=== PATIENT | male | born 1945 | race Caucasian/White ===

== ENCOUNTER → 2016-06-04 | Outpatient (CLI) | payer BC ==
[~2016-06-04] MED LIST: SILD50TA PO; TAMS0.4C59 PO
[2016-06-04 13:59] LABS: ALT/SGPT 31 U/L (12-78); AST/SGOT 18 U/L (15-37); BLOOD UREA NITROGEN 18 mg/dl (7-18); BUN/CREATININE RATIO 18.6 (10-20); CALCIUM 8.7 mg/dl (8.5-10.1); CARBON DIOXIDE 27 mmol/L (21-32); CHLORIDE 110 mmol/L (98-107); CREATININE 0.97 mg/dl (0.60-1.40); GLUCOSE 103 mg/dl (70-99); POTASSIUM 4.5 mmol/L (3.5-5.1); SODIUM 144 mmol/L (136-145)
[2016-06-04 14:01] LABS: ALB/GLOB RATIO 1.2 (0.9-2); ALKALINE PHOSPHATASE 56 U/L (45-117); CHOLESTEROL 204 mg/dl (0-200); CHOLESTEROL/HDL RATIO 3.8; HDL CHOLESTEROL 54 mg/dl; TRIGLYCERIDES 112 mg/dl (0-150); VERY LOW DENSITY LIPOPROT CALC 22 mg/dl
[2016-06-04 14:11] LABS: ESTIMATED AVERAGE GLUCOSE 120 mg/dl; HA1C FLAG Normal (Normal)
== END | disposition home or self-care (01) ==
LOC: C.LABSPEC 12:15
PROVIDERS: ATTEND Internal Medicine
DX: Z00.00 Encounter for general adult medical examination without abnormal findings (principal); R73.9 Hyperglycemia, unspecified; E78.5 Hyperlipidemia, unspecified

== ENCOUNTER → 2016-07-13 | Outpatient (CLI) | payer BC ==
[2016-07-13 17:46] LABS: LYME DISEASE AB IGG NEG (NEG); LYME DISEASE AB IGM NEG (NEG)
== END | disposition home or self-care (01) ==
LOC: C.LABSPEC 13:30
PROVIDERS: ATTEND Internal Medicine
DX: T14.8 Other injury of unspecified body region (principal); W57.XXXA Bitten or stung by nonvenomous insect and other nonvenomous arthropods, initial encounter

== ENCOUNTER → 2016-11-24 | Outpatient (CLI) | payer BC ==
[2016-11-24 11:19] LABS: BLOOD UREA NITROGEN 27 mg/dl (7-18); BUN/CREATININE RATIO 29.3 (10-20); CREATININE 0.91 mg/dl (0.60-1.40)
== END | disposition home or self-care (01) ==
LOC: C.LAB 09:21
PROVIDERS: ATTEND Urology
DX: R39.15 Urgency of urination (principal)

== ENCOUNTER → 2017-04-26 | Outpatient (CLI) | payer BC ==
[2017-04-26 18:44] LABS: INFLUENZA B ANTIGEN Neg for Influ B (NEG)
== END | disposition home or self-care (01) ==
LOC: C.LAB 16:49
PROVIDERS: ATTEND Internal Medicine
DX: B33.8 Other specified viral diseases (principal)

== ENCOUNTER → 2017-10-11 | Outpatient (CLI) | payer BC ==
[2017-10-11 09:35] LABS: BASO % 0.7 %; BASO ABS # 0.03 K/uL (0-0.2); EOS % 8.6 %; EOS ABS # 0.38 K/uL (0-0.5); HEMATOCRIT 44.4 % (42-52); IG# 0.01 K/uL (0.00-0.02); LYMPH % 31.7 %; MEAN CELL VOLUME 94.9 fL (80-100); MEAN CORPUSCULAR HEMOGLOBIN 32.1 pg (25-34); MEAN CORPUSCULAR HGB CONC 33.8 g/dl (32-36); MEAN PLATELET VOLUME 10.7 fL (7.4-10.4); MONO % 11.1 %; MONO ABS # 0.49 K/uL (0.11-0.59); NEUT % 47.7 %; NEUT ABS # 2.11 K/uL (1.4-6.5); PLATELET COUNT 227 K/uL (130-400); RED CELL DISTRIBUTION WIDTH CV 13.5 % (11.5-14.5); RED CELL DISTRIBUTION WIDTH SD 46.7 fL (36.4-46.3); WHITE BLOOD COUNT 4.42 K/uL (4.8-10.8)
[2017-10-11 09:51] LABS: HEMOGLOBIN A1C 5.9 % (4.5-5.6)
[2017-10-11 10:10] LABS: ALBUMIN 3.6 gm/dl (3.4-5.0); ALKALINE PHOSPHATASE 58 U/L (45-117); ALT/SGPT 27 U/L (12-78); AST/SGOT 17 U/L (15-37); BLOOD UREA NITROGEN 19 mg/dl (7-18); CALCIUM 8.4 mg/dl (8.5-10.1); CARBON DIOXIDE 26 mmol/L (21-32); CHOLESTEROL 199 mg/dl (0-200); CREATININE 0.86 mg/dl (0.60-1.40); GLUCOSE 99 mg/dl (70-99); LDL CHOLESTEROL (DIRECT) 134 mg/dl; POTASSIUM 4.5 mmol/L (3.5-5.1); SODIUM 138 mmol/L (136-145); TOTAL PROTEIN 6.9 gm/dl (6.4-8.2)
== END | disposition home or self-care (01) ==
LOC: C.LAB 08:27
PROVIDERS: ATTEND Internal Medicine
DX: R73.9 Hyperglycemia, unspecified (principal); E78.5 Hyperlipidemia, unspecified; M79.2 Neuralgia and neuritis, unspecified

== ENCOUNTER 2020-10-06 05:16 | Observation (INO) ==
--- NOTE | 2020-09-17 12:52 | PAT Medication Instructions ---
Medication Instructions Date of Service September 17, 2020 Home Medications Medication Instructions Recorded sildenafil (pulm.hypertension) 20 20 - 100 mg PO ONCE PRN #90 tab 02/28/ mg tablet Wheeled Walker #1 ea 09/15/20 clobetasol 0.025 % topical cream 1 appln TOP BID PRN ketoconazole 2 % topical cream 1 appln TOP BID PRN triamcinolone acetonide 0.025 % topical cream 1 appln TOP BID PRN sildenafil 20 mg tablet 20 - 100 mg PO ONCE PRN finasteride 5 mg PO QAM ibuprofen 200 mg PO Q6H PRN vit C,X-Yz-tgvrn-lutein-zeaxan [PreserVision AREDS-2] 1 tab PO QAM vitamin A-vitamin C-vit E-min [Eye Health] 1 tab PO QAM ASK your surgeon for instructions ibuprofen 200 mg PO Q6H PRN STOP taking 2 weeks before surgery (or as soon as possible if surgery is within 2 weeks) vit C,B-Ei-lrrrs-lutein-zeaxan [PreserVision AREDS-2] 1 tab PO QAM vitamin A-vitamin C-vit E-min [Eye Health] 1 tab PO QAM STOP taking 24 hours before surgery clobetasol 0.025 % topical cream 1 appln TOP BID PRN ketoconazole 2 % topical cream 1 appln TOP BID PRN triamcinolone acetonide 0.025 % topical cream 1 appln TOP BID PRN DO NOT take the morning of surgery sildenafil 20 mg tablet 20 - 100 mg PO ONCE PRN Take morning of surgery finasteride 5 mg PO QAM Other Notes If you have any questions please call us at [phone] or [phone] or [phone] or [phone]
--- NOTE | 2020-09-19 09:21 | Anesthesiology Consultation ---
Date of Service September 19, 2020 Assessment & Plan (1) Encounter for pre-operative examination: COVID screening: Per assessment on 09/19: Travel screen negative, no known COVID- 19 positive contacts or current COVID-19 related symptoms. Patient vaccinated. Surgeon arranging preop COVID testing. Awaiting results. Chart Review Chart Review: Acceptable Risk for Surgery and Patient seen in Pre Admission Testing Teaching & Discussion Pre-Anesthesia Teaching/Discussion Notes: Instructed NPO after midnight before surgery,except medications with 15 cc of water. Medication instructions pr ovided according to the PAT guidelines. History Surgery Operation Date: 10/06/20 09:20 Proposed Procedures p Right Total Knee Arthroplasty - Gianni Sánchez MD Height/Weight Height: 6 ft Weight: 97.9 kg Allergies Allergy/AdvReac Type Severity Reaction Status Date / Time No Known Allergies Allergy Unknown Verified 03/31/20 09:28 Medications Home Medications Medication Instructions Recorded Confirmed Last Taken clobetasol 0.025 % topical cream 1 appln TOP BID PRN 02/05/19 09/17/20 Unknown ketoconazole 2 % topical cream 1 appln TOP BID PRN 02/05/19 09/17/20 Unknown triamcinolone acetonide 0.025 % 1 appln TOP BID PRN 02/05/19 09/17/20 Unknown topical cream Wheeled Walker #1 ea 09/15/20 09/17/20 Unknown finasteride 5 mg PO QAM 09/17/20 09/17/20 Unknown ibuprofen 200 mg PO Q6H PRN 09/17/20 09/17/20 Unknown sildenafil 20 - 100 mg PO ONCE PRN 09/17/20 09/17/20 Unknown vit C,C-Dy-wrfhe-lutein-zeaxan 1 tab PO QAM 09/17/20 09/17/20 Unknown [PreserVision AREDS-2] vitamin A-vitamin C-vit E-min [Eye 1 tab PO QAM 09/17/20 09/17/20 Unknown Health] Past Medical History Medical History Enlarged prostate with lower urinary tract symptoms (LUTS) History of elevated prostate specific antigen (PSA) Slowing of urinary stream Urge incontinence of urine Exercise / Class Metabolic Activity II 4-5 Yardwork/Stairs/Walk up hill (one FS (no CP, no SOB)) Past Family History Family History Brother Diabetes Past Surgical History Surgical History History of arthroscopy Right knee History of carpal tunnel release R/L History of cataract surgery R/L History of colonoscopy History of prostate surgery x2 History of tooth extraction Hx of inguinal hernia repair Hx of non-cataract eye surgery R/L (for glaucoma) Past Anesthesia History No Hx of Anesthesia Complications and No Family Hx of Anesthesia Complications History of PONV No Hx of Motion Sickness and History of PONV Social History Smoking Status: Never smoker Do You Dip or Chew Tobacco: No Hx Alcohol Use: Yes Alcohol type: beer, wine and hard liquor alcohol intake frequency: 0-2 drinks per day (2 drinks/day (type of drink differs)) Hx Substance Use: No substance use type: does not use Review of Systems Patient denies chest pain, shortness of breath, dyspnea on exertion, fever, chills, cough, wheezing, palpitations. Physical Exam Vital Signs VITALS BP 121/77 P 74 TEMP SP02 97%RA RESP 16 PHYSICAL Mildly reduced cervical extension range of motion. Full TMJ range of motion. TMD 3 finger breaths Mallampati Score 2 Dentition: intact, + veneers (upper front) Lungs: clear throughout to auscultation Cardiac: regular rate and rhythm, no murmurs noted Spine: normal Carotid arteries: negative bruit Extremities: no edema Lab Results Anesthesia Preop Results Results Anesthesia Widget: WBC 4.99 K/uL (4.8-10.8) 09/19/20 Hgb 15.3 g/dL (14.0-18.0) 09/19/20 Hct 44.6 % (42-52) 09/19/20 Plt 229 K/uL (130-400) 09/19/20 Na 143 mmol/L (136-145) 09/19/20 K 4.2 mmol/L (3.5-5.1) 09/19/20 Cl 113 mmol/L (98-107) H 09/19/20 CO2 27 mmol/L (21-32) 09/19/20 BUN 19 mg/dl (7-18) H 09/19/20 Creat 0.87 mg/dl (0.6-1.4) 09/19/20 Glucose Level 93 mg/dl (70-99) 09/19/20 PT 11.2 Seconds (9.0-12.0) 09/19/20 PTT 25.8 Seconds (21.0-31.0) 09/19/20 INR 1.1 (0.9-1.1) 09/19/20 Blood Type O Positive 09/19/20 Antibody Screen NEGATIVE 09/19/20 Testing Electrocardiogram Date: 09/19/20 NSR at 76bpm. NS TWA. Chest X-Ray Date: 09/19/20 FINDINGS: PA and lateral chest radiographs are compared to study dated 05/14/2013. The heart is mildly enlarged noting atherosclerotic calcification of the thoracic aorta. The pulmonary vasculature is noncongested. There is bibasilar scarring/atelectasis. No airspace consolidation or pleural effusion is identified. There is no pneumothorax. The skeletal structures are osteopenic. The bony thorax appears intact. IMPRESSION: No active disease in the chest.
[2020-10-06] MEDS ORDERED: LR 60ML/HR IV SCH (06:00)
[2020-10-06] MEDS ORDERED: LR 500ML BOLUS, THEN 15ML/HR IV SCH (06:00)
[2020-10-06] MEDS ORDERED: BUPIVACAINE LIPOSOME 1.3% 266 MG/20 ML VIAL ONE (06:34)
[2020-10-06] MEDS ORDERED: SODIUM CHLORIDE 0.9% PF 50 ML VIAL ONE (06:34)
[2020-10-06] MEDS ORDERED: BUPIVACAINE 0.25% 30 ML VIAL ONE ×2 (06:35→06:37)
[2020-10-06] MEDS ORDERED: EPINEPHrine INJ 1 MG/ML AMP ONE ×2 (06:35→06:38)
[2020-10-06] MEDS ORDERED: PROPOFOL IV EMULSION 10 MG/ML 20 ML VIAL IV ONE ×2 (06:36→06:46)
[2020-10-06] MEDS ORDERED: fentaNYL citrate 100 MCG/2 ML VIAL ONE (06:36)
[2020-10-06] MEDS ORDERED: LIDOCAINE 2% 2 ML VIAL/AMP(20MG/ML) INFIL ONE ×2 (06:36→06:46)
[2020-10-06] MEDS ORDERED: MIDAZOLAM HCL 1 MG/ML 2ML VIAL ONE ×2 (06:36→07:31)
[2020-10-06] MEDS ORDERED: HYDROmorphone INJ 2 MG/ML SYR/VIAL IV PRN (06:45)
[2020-10-06] MEDS ORDERED: ePHEDrine sulfate 50 MG/ML AMP IV PRN (06:45)
[2020-10-06] MEDS ORDERED: ONDANSETRON INJ 2 MG/ML 2 ML VIAL IV PRN ×2 (06:45→10:07)
[2020-10-06] MEDS ORDERED: ATROPINE SULFATE 0.1 MG/ML 10ML SYR IV PRN (06:45)
[2020-10-06] MEDS ORDERED: fentaNYL citrate 100 MCG/2 ML VIAL IV PRN (06:45)
[2020-10-06] MEDS ORDERED: ceFAZolin 2,000 MG/15 ML IV PUSH IV ONE (06:52)
[2020-10-06] MEDS ORDERED: dexAMETHasone 4 MG TAB PO ONE (06:53)
[2020-10-06] MEDS ORDERED: TRANEXAMIC ACID / 0.7% NACL 1000MG/100ML BAG IV ONE (06:53)
[2020-10-06] MEDS ORDERED: ACETAMINOPHEN 500 MG TAB ONE (06:55)
--- NOTE | 2020-10-06 06:57 | History & Physical Bridge Note ---
Date of Service October 06, 2020 History & Physical Bridge Note I have examined the patient, reviewed the History & Physical and in the interval since the performance of the History & Physical I have noted the following changes of clinical significance: no changes noted
--- NOTE | 2020-10-06 08:55 | Post Operative Brief Note ---
PG Immediate Post Op with CF Date of Surgery October 06, 2020 Pre & Post Diagnosis Operation Date: 10/06/20 07:00 Pre-Op Diagnosis: Right Knee Degenerative Joint Disease Post-Op Diagnosis: Right Knee Degenerative Joint Disease I identified the patient and participated in the time-out.: Yes Procedure Operation Date: 10/06/20 07:00 Actual Procedures p Right Total Knee Arthroplasty, Cemented(Right) - Gianni Sánchez MD Surgeon Gianni Sánchez MD Sk[employer] SHEKHAR Burkett Estimated Blood Loss 50 Findings Consistent with Post-Op Diagnosis Fluids 1300 cc Specimens Specimen Description: Permanent Specimen A: Right knee bone and tissue Drains Catheter Anesthesia Type Spinal MAC Complications none Disposition Accompanied Patient To Recovery: No
--- NOTE | 2020-10-06 09:27 | XRay Report ---
XR knee RT 1 or 2V routine CLINICAL HISTORY: Postoperative evaluation. COMPARISON: Knee radiographs August 24, 2018. FINDINGS: Alignment of the total right knee arthroplasty is anatomic. No periprosthetic fracture. Th ere is no unexpected radiopaque foreign body. There are skin erlin. IMPRESSION: Expected findings following total right knee arthroplasty. ACT 112: Negative or not required by law. Electronically signed by: Noah Salomon M.D. 10/06/2020 9:26 AM
[2020-10-06] MEDS ORDERED: METOCLOPRAMIDE HCL INJ 5 MG/ML 2 ML VIAL IV PRN (10:07)
[2020-10-06] MEDS ORDERED: bisacodyL 10 MG SUPP PR PRN (10:07)
[2020-10-06] MEDS ORDERED: NALOXONE HCL 0.4 MG/1 ML VIAL/CARP IV PRN (10:07)
[2020-10-06] MEDS ORDERED: TRIAMCINOLONE ACET 0.025% CR 15 GM TUBE TOP PRN (10:07)
[2020-10-06] MEDS ORDERED: NON-FORMULARY MEDICATION (Vitamin A-Vitamin C-Vit E-Min Tablet) PO SCH (10:07)
[2020-10-06] MEDS ORDERED: MULTIVITAMIN TAB PO SCH (10:07)
[2020-10-06] MEDS ORDERED: ALUMINUM/MAGNESIUM SUSP 30 ML UDC PO PRN (10:07)
[2020-10-06] MEDS ORDERED: oxyCODONE HCL IR 5 MG TAB (IMMEDIATE RELEASE) PO PRN (10:07)
[2020-10-06] MEDS ORDERED: KETOCONAZOLE 2% CR 15 GM TUBE EXT PRN (10:07)
[2020-10-06] MEDS ORDERED: TAMSULOSIN HCL 0.4 MG CAP PO PRN (10:07)
[2020-10-06] MEDS ORDERED: MAGNESIUM HYDROXIDE SUSP 30 ML UDC PO PRN (10:07)
--- NOTE | 2020-10-06 10:38 | Anesthesiology Progress Note ---
Date of Service October 06, 2020 Anesthesia Post Procedure Vital Signs Vital Signs: Temp Pulse Pulse Pulse Resp BP BP 10/06/20 10:29 36.3 C L 61 16 145/80 H 10/06/20 10:00 36.7 C 59 L 16 134/71 10/06/20 09:50 59 L 12 133/72 10/06/20 09:40 37.0 C 58 L 12 133/71 10/06/20 09:30 55 L 14 115/66 10/06/20 09:20 58 L 12 124/64 10/06/20 09:10 60 13 109/64 10/06/20 09:00 36.5 C 61 17 102/59 L 10/06/20 05:56 36.8 C 70 18 136/91 Pulse Ox 10/06/20 10:29 96 10/06/20 10:00 95 10/06/20 09:50 94 10/06/20 09:40 97 10/06/20 09:30 97 10/06/20 09:20 100 10/06/20 09:10 97 10/06/20 09:00 98 10/06/20 05:56 93 Transfer of Care Handoff Completed per policy Notes Mental Status: alert / awake / arousable and participated in evaluation Patient Amnestic to Procedure: Yes Nausea / Vomiting: adequately controlled Pain: adequately controlled Airway Patency, RR, SpO2: stable & adequate BP & HR: stable & adequate Hydration State: stable & adequate Anesthetic Complications: no major complications apparent and Pt Satisfied with anesthetic care
[2020-10-06] MEDS: CEROVITE ADV FORMULA TAB PO SCH (12:03)
[2020-10-06] MEDS: ASPIRIN 81 MG ECTAB PO SCH ×2 (12:03→20:52)
[2020-10-06] MEDS: KETOROLAC TROMETHAMINE 15 MG/ML VIAL IV SCH ×3 (12:03→23:15)
[2020-10-06] MEDS: TAPENTADOL HCL ER 50 MG TABCR PO SCH ×2 (12:03→20:51)
[2020-10-06] MEDS: DOCUSATE SODIUM 100 MG CAP PO SCH ×2 (12:03→20:51)
[2020-10-06] MEDS: FINASTERIDE 5 MG TAB PO SCH (12:03)
[2020-10-06] MEDS: SODIUM CHLORIDE 0.9% 1000ML 1,000 ML IV SCH ×3 (13:32→20:55)
[2020-10-06] MEDS: ACETAMINOPHEN 500 MG TAB PO SCH ×2 (13:33→20:52)
[2020-10-06] MEDS ORDERED: TRANEXAMIC ACID / 0.7% NACL 1,000 MG/100 ML BAG IV SCH (15:00)
[2020-10-06] MEDS: ceFAZolin 2000MG 2,000 MG/15 ML SYR IV SCH ×2 (17:13→23:14)
[2020-10-06] MEDS: ASCORBIC ACID 500 MG TAB PO SCH (17:13)
--- NOTE | 2020-10-06 17:20 | Operative Report ---
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 Extensive grade 4 [id number] disease of the medial compartment. Fairly mild degenerative changes laterally and moderate check degenerative changes in the patellofemoral compartment. He had a varus deformity to his knee with a slight flexion contracture. Moderate- sized joint effusion. Fluids 1300 cc Specimens Right knee sent for pathology. Drains None Anesthesia Type Spinal MAC Complications none Disposition Accompanied Patient To Recovery: No Indications Patient is 74-year-old gentleman is had a long history of progressively increasing right knee pain discomfort describes gotten worse over the past 5 years. Failed conservative measures. He elected proceed with total knee arthroplasty. Description of Procedure Operative implants consist of: 1 Biomet Vanguard size 75 right posterior stabilized femoral component. 2. Biomet size 79 tibial tray. 3. 12 mm posterior stabilized polyethylene insert. 4. 37 x 10 all polypatella. The patient was taken to the operating, identified, placed on the operating table supine position but a contractors were properly padded. IV antibiotics tried by anesthesia team. A spinal anesthetic and abductor canal block had provided holding area. catheter was placed in sterile fashion. Right thigh tip was then placed in the right lower extremities and prepped draped in usual sterile fashion. The right leg was elevated exsanguinated with use of an Esmarch and turns placed at 300 mmHg. An anterior approach to the right knee was then performed to longitudinal incision centered over the patella. Sharp dissection was got through subcutaneous this down the extensor mechanism. Medial parapatellar arthrotomy incision was made. Some subperiosteal dissection was carried out medially. The fat pad was resected beneath patella tendon. Lateral patellofemoral ligament was released. Patella subluxated laterally and the knee was flexed. The osteophytes were taken off distal femur. The ACL and PCL were then released from distal femur the tibia subluxated anteriorly. External tibial alignment jig was then placed in the interface the tibia and adjusted 14 mm medially. Proximal tibial cut was made remove about a millimeter bone from the most deficient aspect medial tibial plateau. Some osteophytes were taken off medial and posterior medially. The tibia sized to a size 79. Attention drawn the femur. The distal femur was entered the sharp drop with intramedullary canal was suction. A right 6 degree valgus cutting guide was placed but distal femoral cutting block was pinned in place. Distal femoral cut was made to take an additional 3 mm of bone off distal femur. The femur was then sized to a size 75. The AP cutting block was pinned parallel to the epicondylar axis which was 3 degrees of external rotation. The anterior cut, anterior chamfer, posterior cut, posterior chamfer cuts were made. The box cutting guide was placed in just slight lateral box cut was made. The knee was flexed. The remnants of the medial and lateral menisci were excised. The osteophytes were taken off the posterior aspect the femur. A trial femoral component was placed but the tibial tray was pinned in maximum external rotation and the drill and stem punch were used to create defect in proximal tibia for the tibial tray. Knee was then trialed and the 12 mm insert fit most appropriately. Attention drawn the patella. Nupathe the patella was cleaned of all soft tissue. Patella thickness measured 25 mm in thickness was cut down to 15. Was sized to a size 37 patella. The lug holes were drilled for the 37 patella. The lateral osteophyte is moved. Patella button was placed. Knee was taken through range of motion patella tracked nicely with no thumbs test. Attention drawn to place the permanent components. All trial components were removed. Bone plug was placed in the distal femur limit blood loss. L batch [place] G cement was mixed. Biomet Vanguard size 75 right posterior stabilized femoral component, size 79 tibial tray, 12 mm posterior stabilized polyethylene insert, and a 37 x 10 all polypatella and cemented in place. Knee was brought out in full extension total cement hardened. Final cement check was then performed. The pericapsular tissues were injected with total 100 cc of combination of 20 of Exparel, 30 cc normal saline, 50 cc of quarter percent Marcaine with epinephrine. Patient did receive 1 g tranexamic acid. The tourniquet was then let down for final tourniquet time of 59 minutes. Hemostasis assured with electrocautery. The extensor mechanism closed with combination 1 PDS suture #1 Vicryl suture in [id number] fashion. The extensor mechanism checked and found to be intact and subcutaneous tissues then closed with 2 Dexon suture in a buried interrupted fashion. Skin was closed skin erlin. Leg was then cleaned dried a sterile dressing with Xeroform, 4 x 4's, sterile cast padding, Oscar bandage were applied. Patient then transferred to the recovery room in stable condition. Patient tolerated the procedure well and there were no complications. Rolando Burkett, my physician behavioral assistant, was present for the entire procedure. His assistance was essential and required for appropriate patient positioning, prepping and draping, surgical exposure, performing the technical details of the operation, placement the implants, closure of the wound, and placement of the sterile bandage. I attest to the content of the Intraoperative Record and any orders documented therein. Any exceptions are noted below.
[2020-10-06] MEDS ORDERED: SENNA 8.6 MG TAB PO SCH (21:00)
[2020-10-07] MEDS: ACETAMINOPHEN 500 MG TAB PO SCH ×2 (04:59→13:14)
[2020-10-07] MEDS: KETOROLAC TROMETHAMINE 15 MG/ML VIAL IV SCH ×2 (04:59→13:15)
[2020-10-07 06:44] LABS: Hematocrit (blood only) 39.1 % (42-52); Hemoglobin 13.4 g/dL (14.0-18.0); Mean Corpuscular Hemoglobin 32.7 pg (25-34); Mean Corpuscular Hgb Conc 34.3 g/dL (32-36); Mean Corpuscular Volume 95.4 fL (80-100); Mean Platelet Volume 10.6 fL (7.4-10.4); Platelet Count 244 K/uL (130-400); RDW Standard Deviation 45.3 fL (36.4-46.3); White Blood Count 18.69 K/uL (4.8-10.8)
[2020-10-07 07:09] LABS: BUN Creatinine Ratio 25.3 (10-20); Calcium 8.9 mg/dl (8.5-10.1); Creatinine Clr Calc Pharmacy 93.6 ml/min; Est GFR (African American) 100.1 ml/min; Est GFR (Non-African American) 86.3 ml/min; Potassium 4.1 mmol/L (3.5-5.1)
[2020-10-07] MEDS: CEROVITE ADV FORMULA TAB PO SCH (07:52)
[2020-10-07] MEDS: TAPENTADOL HCL ER 50 MG TABCR PO SCH (07:52)
[2020-10-07] MEDS: ASPIRIN 81 MG ECTAB PO SCH (07:52)
[2020-10-07] MEDS: FINASTERIDE 5 MG TAB PO SCH (07:52)
[2020-10-07] MEDS: ASCORBIC ACID 500 MG TAB PO SCH (07:52)
[2020-10-07] MEDS: DOCUSATE SODIUM 100 MG CAP PO SCH (07:53)
[2020-10-07] MEDS ORDERED: dexAMETHasone 10 MG in SYRINGE 0 ML IV SCH (08:00)
--- NOTE | 2020-10-07 12:50 | Progress Notes ---
DATE OF SERVICE: 10/07/2020 SUBJECTIVE: A 74-year-old gentleman postoperative day 1 from right knee replacement. He is doing pr kaitlin well. Pain has been controlled. Pretty good night. No chest pain or shortness of breath. Not feeling dizzy or lightheaded. Therapy has gone well. OBJECTIVE: VITAL SIGNS: Temperature 36.3. Vital signs are stable. PHYSICAL EXAMINATION: GENERAL: Shows a pleasant middle-aged male. He is sitting up in his bedside chair, talking to the t herapist. LUNGS: Clear to auscultation. HEART: Regular rate and rhythm. ABDOMEN: Soft, nontender, nondistended. EXTREMITIES: Grossly neurovascularly intact except as follows: Examination of the right leg reveals the dressing to be clean, dry and intact. Leg is well aligned. No drainage. He can do a good stra ight leg raise. He can dorsiflex and plantarflex his foot appropriately. NEUROLOGIC: He is neurologically intact. LABORATORY DATA: Hemoglobin 13.4. Hematocrit 39.1. White cell count 18.69. Electrolytes are stabl e. ASSESSMENT: A 74-year-old gentleman postoperative day 1 from right knee replacement, doing well. Hi s pain is controlled. He is neurologically intact. Therapy has gone well. PLAN: 1. DVT prophylaxis includes thigh-high TEDs, SCDs, and aspirin twice a day. 2. PT, OT, weightbear as tolerated. Right total knee protocol. 3. Pain control, doing well with current pain regimen. 4. Disposition: Plan to discharge to home likely later today if continues to do okay in therapy and mobilization and pain controlled. Job ID: [id number]
--- NOTE | 2020-10-10 13:21 | Discharge Summary ---
Date of Service October 10, 2020 Discharge Data Procedures Performed Operation Date: 10/06/20 07:00 Actual Procedures p Right Total Knee Arthroplasty, Cemented(Right) - Gianni Sánchez MD Hospital Course (1) Status post total right knee replacement: This is a 74 year old patient admitted on 10/07/20 and underwent total knee arthroplasty. He tolerated the procedure well and there were no complications. Transferred to the PACU post op and later to the orthopedic floor for further care. He was given ancef for antibiotic prophylaxis. He was also given JOSEPH stockings, SCDs, and aspirin for DVT prophylaxis. Hemoglobin, hematocrit, and vital signs were monitored during his hospital stay and remained stable. Did not require any blood transfusions. There were no complications during his hospital stay. By post op day #1 the patient was tolerating a regular diet, pain was reasonably controlled with oral pain medicine, and he was participating in physical therapy. On post op day #1 the patient was discharged home and set up with home health care. He was given printed discharge instructions including prescriptions for extra strength tylenol, aspirin, and oxycodone. Continue physical therapy, weight bearing as tolerated. Continue JOSEPH stockings. Follow up approximately 2 weeks post op or sooner if there are problems or concerns. Coding Level of Care Code None Diagnoses Status post total right knee replacement Z96.651
== END 2020-10-07 14:51 | disposition home health service (06) ==
LOC: ASU 05:16 → 3E 05:16